=== PATIENT | female | born 1945 | race Hispanic/Latino ===

== ENCOUNTER 2020-08-15 09:40 | Outpatient (CLI) | payer MEDICARE | END 2020-08-15 09:41 | disposition home or self-care (01) | LOC: CSHWCC 09:40 | PROVIDERS: ATTEND Nurse Practitioner Family | DX: I87.313 Chronic venous hypertension (idiopathic) with ulcer of bilateral lower extremity (principal); I87.2 Venous insufficiency (chronic) (peripheral); L97.319 Non-pressure chronic ulcer of right ankle with unspecified severity; L97.229 Non-pressure chronic ulcer of left calf with unspecified severity; L97.329 Non-pressure chronic ulcer of left ankle with unspecified severity; L97.429 Non-pressure chronic ulcer of left heel and midfoot with unspecified severity; L03.115 Cellulitis of right lower limb; L03.116 Cellulitis of left lower limb; R60.0 Localized edema | CPT/HCPCS: 11042; 97139; G0463; 99203 ==

== ENCOUNTER 2020-08-29 09:15 | Outpatient (CLI) | payer MEDICARE | END 2020-08-29 09:16 | disposition home or self-care (01) | LOC: CSHWCC 09:15 | PROVIDERS: ATTEND Nurse Practitioner Family | DX: I87.313 Chronic venous hypertension (idiopathic) with ulcer of bilateral lower extremity (principal); I87.2 Venous insufficiency (chronic) (peripheral); L97.319 Non-pressure chronic ulcer of right ankle with unspecified severity; L97.229 Non-pressure chronic ulcer of left calf with unspecified severity; L97.329 Non-pressure chronic ulcer of left ankle with unspecified severity; L97.429 Non-pressure chronic ulcer of left heel and midfoot with unspecified severity; R60.0 Localized edema; L03.115 Cellulitis of right lower limb; L03.116 Cellulitis of left lower limb | CPT/HCPCS: 99213; G0463 ==

== ENCOUNTER 2020-09-12 12:14 | Outpatient (CLI) | payer MEDICARE | END 2020-09-12 12:15 | disposition home or self-care (01) | LOC: CSHWCC 12:14 | PROVIDERS: ATTEND Nurse Practitioner Family | DX: I87.311 Chronic venous hypertension (idiopathic) with ulcer of right lower extremity (principal); I87.312 Chronic venous hypertension (idiopathic) with ulcer of left lower extremity; L97.319 Non-pressure chronic ulcer of right ankle with unspecified severity; L97.229 Non-pressure chronic ulcer of left calf with unspecified severity; L97.329 Non-pressure chronic ulcer of left ankle with unspecified severity; L97.429 Non-pressure chronic ulcer of left heel and midfoot with unspecified severity; R60.0 Localized edema; I10 Essential (primary) hypertension; I87.2 Venous insufficiency (chronic) (peripheral); L03.115 Cellulitis of right lower limb; L03.116 Cellulitis of left lower limb | CPT/HCPCS: 11042; 82962; 97139; G0463; 36416; 99213 ==

== ENCOUNTER 2023-01-14 12:28 | Emergency (ER) | payer OTHER ==
[2023-01-14 13:41] LABS: #Basophils 0.1 10x3/uL (0.0-0.2); #Eosinphils 0.2 10x3/uL (0.0-0.5); #Monocytes 0.8 10x3/uL (0.0-1.1); #Neutrophils 5.6 10x3/uL (1.5-8.4); %Basophils 0.6 % (0.0-2.0); %Lymphocytes 16.1 % (18.0-47.0); %Monocytes 9.4 % (0.0-10.0); %Neutrophils 70.4 % (40.0-75.0); Hematocrit 30.4 % (34.9-44.5); Hemoglobin 9.4 g/dL (12.0-15.5); Mean Corpuscular HGB CONC 30.9 g/dL (32.0-36.0); Mean Corpuscular Hemoglobin 29.3 pg (27.0-33.0); Mean Corpuscular Volume 94.7 fl (81.6-98.3); Platelet Count 342 10x3/uL (150-450); RBC Distribution Width 13.7 % (11.5-14.5); Red Blood Cell (RBC) Count 3.21 10x6/uL (3.90-5.03)
[2023-01-14 14:17] LABS: ALT (SGPT) 15 U/L (8-55); AST (SGOT) 27 U/L (5-34); Albumin 4.2 g/dL (3.4-4.8); Alkaline Phosphatase 131 U/L (40-110); Anion Gap 15 mmol/L (10-20); BUN (Urea Nitrogen) 31 mg/dL (9.8-20.1); Bilirubin, Total 0.3 mg/dL (0.2-1.2); Calc. Creatinine Clearance 0 mL/min (70-130); Carbon Dioxide 16 mmol/L (23-31); Chloride 114 mmol/L (98-107); Estimated GFR 24; Globulin 2.6 g/dL (2.4-3.5); Glucose 104 mg/dL (83-110); Potassium 5.3 mmol/L (3.5-5.1); Protein, Total 6.8 g/dL (5.8-8.1); Sodium 140 mmol/L (136-145)
== END 2023-01-14 16:04 | disposition home or self-care (01) ==
LOC: CSHERS 12:28
DX: M25.561 Pain in right knee (principal); G89.29 Other chronic pain; I10 Essential (primary) hypertension
CPT/HCPCS: 36415; 80053; 85025